=== PATIENT | female | born 1945 | race Caucasian/White ===

== ENCOUNTER 2016-08-29 13:45 | Emergency (ER) | payer MEDICARE, OTHER ==
[~2016-08-29] VITALS: Ht 157.5 cm; Wt 71.0 kg
[~2016-08-29 13:45] MED LIST: ACET-2158 PO; DIL1I IV; FAMO20VI9 IV; HYDR-3504 PO; Hydralazine Hcl IV; LORA2VIA3 IV; MOR10I IV; NS3ML IV; ONDA-43 PO; UDMOM PO; ZOLP5TAB PO; [UNRECOGNIZED DRUG - CODE] IV
[2016-08-29 13:50] VITALS: Ht 157.5 cm; Wt 71.0 kg
[2016-08-29] MEDS ORDERED: ACETAMINOPHEN 325 MG TAB PO ONE (15:00)
--- NOTE | 2016-08-29 15:43 | ERD ---
ER Documentation Chief Complaint Date/Time DATE: 08/29/16 TIME: 15:38 Chief Complaint right wrist pain, left knee pain HPI Patient is a 70-year-old female who presents to the ED with right wrist pain and left knee pain after sustaining a fall where she tripped over her cat and landed on her right wrist and left knee. Patient has a history of left leg amputation. Patient denies hitting her head or passing out or losing consciousness. Patient states that she was aware of everything that happened. She states that she has pain in her right wrist. No pain in her elbow joint. No headache or dizziness. No syncopal episode. No chest pain or cough or shortness of breath. No abdominal pain, nausea, vomiting or diarrhea. ROS All systems reviewed and are negative except as per history of present illness. Medications Home Meds Active Scripts Tramadol HCl (Tramadol HCl) 50 Mg Tablet, 50 MG PO Q6, #10 TAB Prov:MILAGRO ZHOU PA-C 08/29/16 Zolpidem Tartrate (Ambien Catalino) 5 Mg Tab, 5 MG PO QHS Y for INSOMNIA, #30 Prov:ZULAY PALOMINO MD 09/14/14 Sodium Chloride* (NS* 3 ml (Saline Flush)) 3 Ml Soln, 3 ML IV .PER PROTOCOL, # 30 Prov:ZULAY PALOMINO MD 09/14/14 Ondansetron Hcl* (Zofran*) 4 Mg Tab, 4 MG PO Q6H Y for NAUSEA AND/OR VOMITING for 30 Days, TAB Prov:ZULAY PALOMINO MD 09/14/14 Morphine Sulfate (Morphine) 10 Mg/Ml Soln, 8 MG IV Q4H Y for PAIN LEVEL 7-10 for 30 Days Prov:ZULAY PALOMINO MD 09/14/14 Magnesium Hydroxide* (Mcgill' MOM*) 30 Ml Susp, 30 ML PO DAILY Y for CONSTIPATION, #30 Prov:ZULAY PALOMINO MD 09/14/14 Lorazepam* (Ativan* IV) 2 Mg/Ml Soln, 0.5 MG IV Q6H Y for ANXIETY, #20 VIAL Prov:ZULAY PALOMINO MD 09/14/14 Hydromorphone Hcl* (Dilaudid* Inj) 1 Mg/Ml Soln, 0.5 MG IV Q4H Y for PAIN LEVEL 7-10 for 30 Days Prov:ZULAY PALOMINO MD 09/14/14 Hydrocodone Bit-Acetaminophen (Hydrocodone-APAP) 1 Tab Tab, 2 TAB PO Q4H Y for PAIN for 30 Days Prov:ZULAY PALOMINO MD 09/14/14 [Hydralazine Hcl] 20 MG/ML SOLN No Conflict Check, 10 MG IV Q2H Y for ELEVATED SYSTOLIC BP, VIAL Prov:ZULAY PALOMINO MD 09/14/14 Heparin Sodium,Porcine (Heparin Sodium) 1,000 Unit/Ml Soln, 0 UNIT IV PRN Y for PENDING LAB VALUE for 30 Days, VIAL Prov:ZULAY PALOMINO MD 09/14/14 Famotidine* (Pepcid*) 10 Mg/Ml Soln, 20 MG IV DAILY, #30 VIAL Prov:ZULAY PALOMINO MD 09/14/14 Acetaminophen (TYLENOL 325 MG TAB) 325 Mg Tab, 650 MG PO Q6H Y for PAIN LEVEL 1- 3 OR FEVER for 30 Days, TAB Prov:ZULAY PALOMINO MD 09/14/14 Allergies Allergies: Coded Allergies: No Known Allergy (Unverified , 09/06/14) PMhx/Soc History of Surgery: Yes (1978 - LEFT SALPHINGOOOPHORECTOMY) Anesthesia Reaction: No Hx Neurological Disorder: No Hx Respiratory Disorders: No Hx Cardiac Disorders: Yes (mi?) Hx Psychiatric Problems: No Hx Miscellaneous Medical Probl: Yes (HTN, left BKA) Hx Alcohol Use: No Hx Substance Use: No Hx Tobacco Use: Yes Smoking Status: Current some day smoker FmHx Family History: No coronary disease, No diabetes, No other Physical Exam Vitals Vital Signs Date Time Temp Pulse Resp B/P Pulse Ox O2 Delivery O2 Flow Rate FiO2 08/29/16 13:50 98.1 78 18 125/80 99 Physical Exam GENERAL: Well-developed, well-nourished female. Appears in no acute distress. Patient has a left prosthetic leg and is in a wheelchair. HEAD: Normocephalic, atraumatic. EYES: Pupils are equally reactive bilaterally. EOMs grossly intact. No conjunctival erythema. ENT: Moist mucous membranes. No uvula deviation. No kissing tonsils. No exudates. NECK: Supple. No lymphadenopathy or thyromegaly. No meningismus. negative kernig. negative brudinski. LUNG: Clear to auscultation bilaterally. No rhonchi, wheezing, rales or coarse breath sounds. HEART: Regular rate and rhythm. No murmurs, rubs or gallops. Extremities: Equal pulses bilaterally. No peripheral clubbing, cyanosis or edema. No unilateral leg swelling. Tenderness to the right wrist at the carpal bones and distal radius and ulna. Strong radial pulse. Capillary refill within normal limits. Slight deformity in the wrist. No open wounds or lacerations. No ecchymosis. No erythema. Warm. NEUROLOGIC: Alert and oriented. Moving all four extremities. 5/5 strength in all extremities. Normal speech. Steady gait. SKIN: Normal color. Warm and dry. No rashes or lesions. Capillary refill < 2 seconds Results 24 hrs Current Medications Medications (Trade) Dose Ordered Sig/Chris Route PRN Reason Start Time Stop Time Status Last Admin Dose Admin Acetaminophen (Tylenol Tab) 650 mg ONCE ONCE PO 08/29/16 15:00 08/29/16 15:01 DC 08/29/16 15:19 Tramadol HCl (Ultram) 50 mg ONCE ONCE PO 08/29/16 17:30 08/29/16 17:31 DC 08/29/16 18:13 Procedures/MDM ER COURSE: I kept the patient and/or family informed of laboratory and diagnostic imaging results throughout the emergency room course. IMAGING STUDIES [place] [address] Radiology Main Line: [phone] DIAGNOSTIC IMAGING REPORT Patient: ELLY SLOAN : 1945 Age: 70 Sex: F [id number] DOS: 08/29/16 1454 Ordering MD: MILAGRO ZHOU PA-C Location: [facility] Room/Bed: PROCEDURE: XR Right Forearm. CLINICAL INDICATION: Trauma due to a fall. Right forearm pain. TECHNIQUE: AP and lateral views of the right forearm were obtained. COMPARISON: No prior studies are available for comparison. FINDINGS: There is an acute comminuted fracture of the distal radius involving the metaphysis and extending to the distal articular surface. There is marked angulation apex-anterior and impaction of the fracture fragments. There is no other acute fracture and there is no dislocation. There is an old nonunited ulnar styloid fracture. There is soft tissue swelling overlying the fracture. The articular surfaces are otherwise intact. There is no lytic or blastic lesion. There is no radiopaque foreign body. IMPRESSION: 1. Acute comminuted fracture of the distal radius involving the distal metaphysis and articular surface. Marked angulation apex-anterior. Impaction of the fracture fragments. 2. Old nonunited ulnar styloid fracture. 3. Soft tissue swelling overlying the fracture. 4. Otherwise unremarkable images of the right forearm. RPTAT: QQ .Cem Ellis MD, Date Time Electronically viewed and signed by .Cem Ellis MD, on 08/29/2016 16:31 .R/ CC: MILAGRO ZHOU PA-C [place] [address] Radiology Main Line: [phone] DIAGNOSTIC IMAGING REPORT Patient: ELLY SLOAN : 1945 Age: 70 Sex: F MR #: [id number] DOS: 08/29/16 1454 Ordering MD: MILAGRO ZHOU PA-C Location: [facility] Room/Bed: PROCEDURE: Left knee radiographs. CLINICAL INDICATION: Trauma due to a fall Left knee pain. TECHNIQUE: Three views. Weight bearing. Frontal, lateral, and oblique. COMPARISON: No prior studies are available for comparison. FINDINGS: There is no fracture or dislocation. There is a joint effusion. Articular surfaces are intact. There is no lytic or blastic lesion. Surgical clips are present in the soft tissues posteriorly. IMPRESSION: 1. Surgical clips in the posterior soft tissues. 2. Joint effusion. 3. No fracture. RPTAT: QQ .Cem Ellis MD, Date Time Electronically viewed and signed by .Cem Ellis MD, MD on 08/29/2016 16:32 .R/ CC: MILAGRO ZHOU PA-C MEDICAL DECISION MAKING: This is a 70-year-old female who presents with right wrist pain and left knee pain after sustaining a fall. Vital signs were reviewed. Patient is afebrile. Patient is not hypoxic. Patient is not toxic or ill-appearing. X-rays of by radiologist showsAcute comminuted fracture of the distal radius involving the distal metaphysis and articular surface. Marked angulation apex-anterior. Impaction of the fracture fragments. I consulted with my supervising physician who reviewed her imaging studies and agrees with my medical decision making and discharge plans. Patient will be placed in a volar splint. Patient was neurovascularly intact post placement. Patient's skin was warm, strong radial pulse and good capillary refill, less than 2 seconds. I did explain to patient possible side effects of his injuries such as permanent nerve damage and weakness. I did expand to patient that she needs to follow-up with an beef specialist in 1-2 days. Patient stated that she had a specialist at [facility] and will be following up with the doctor tomorrow. I did explain to patient that if she does not have access to the specialist to come earlier to the ER for further evaluation. Social service consult was called to discuss with patient possibility of options as patient has difficulty with activities of daily living. Patient had difficulty ambulating here in the ED. Patient was given a crutch for her left arm however she did have difficulty ambulating. Patient does use a walker at home. Patient will be transferred to the next provider, Kailee Garcia PA-C. Plan was discussed with patient. patient will be calling her neighbors to see if they can help her at home. Social service was called again. Patient is stable at transfer to the next provider. Plan is for patient to be sent home if she does have help at home however patient has a positive of being admitted here in the hospital if she does not help at home for her activities of daily living Departure Diagnosis: Primary Impression: Fracture, radius Encounter type: initial encounter Fracture type: closed Laterality: right Condition: Stable MILAGRO ZHOU PA-C Aug 29, 2016 15:43 MILAGRO ZHOU PA-C Aug 29, 2016 15:43
--- NOTE | 2016-08-29 16:31 | RADRPT ---
PROCEDURE: XR Right Wrist. CLINICAL INDICATION: Trauma due to a fall. Right wrist pain. TECHNIQUE: Four views. Frontal, lateral, oblique, and scaphoid view. COMPARISON: No prior studies are available for comparison. FINDINGS: There is an acute comminuted fracture of the distal radius involving the metaphysis and extending to the distal articular surface. There is marked angulation apex-anterior and impaction of the fractu re fragments. There is no other acute fracture and there is no dislocation. There is an old nonunit ed ulnar styloid fracture. There is soft tissue swelling overlying the fracture. The articular surfaces are otherwise intact. There is no lytic or blastic lesion. There is no radiopaque foreign body. IMPRESSION: 1. Acute comminuted fracture of the distal radius involving the distal metaphysis and articular yodit face. Marked angulation apex-anterior. Impaction of the fracture fragments. 2. Old nonunited ulnar styloid fracture. 3. Soft tissue swelling overlying the fracture. 4. Otherwise unremarkable images of the right wrist. RPTAT: QQ .Cem Ellis MD, Date Time Electronically viewed and signed by .Cem Ellis MD, on 08/29/2016 16:31 .R/
--- NOTE | 2016-08-29 16:32 | RADRPT ---
PROCEDURE: XR Right Forearm. CLINICAL INDICATION: Trauma due to a fall. Right forearm pain. TECHNIQUE: AP and lateral views of the right forearm were obtained. COMPARISON: No prior studies are available for comparison. FINDINGS: There is an acute comminuted fracture of the distal radius involving the metaphysis and extending to the distal articular surface. There is marked angulation apex-anterior and impaction of the fractu re fragments. There is no other acute fracture and there is no dislocation. There is an old nonunit ed ulnar styloid fracture. There is soft tissue swelling overlying the fracture. The articular surfaces are otherwise intact. There is no lytic or blastic lesion. There is no radiopaque foreign body. IMPRESSION: 1. Acute comminuted fracture of the distal radius involving the distal metaphysis and articular yodit face. Marked angulation apex-anterior. Impaction of the fracture fragments. 2. Old nonunited ulnar styloid fracture. 3. Soft tissue swelling overlying the fracture. 4. Otherwise unremarkable images of the right forearm. RPTAT: QQ .Cem Ellis MD, MD Date Time Electronically viewed and signed by .Cem Ellis MD, on 08/29/2016 16:31 .R/
--- NOTE | 2016-08-29 16:32 | RADRPT ---
PROCEDURE: Left knee radiographs. CLINICAL INDICATION: Trauma due to a fall Left knee pain. TECHNIQUE: Three views. Weight bearing. Frontal, lateral, and oblique. COMPARISON: No prior studies are available for comparison. FINDINGS: There is no fracture or dislocation. There is a joint effusion. Articular surfaces are intact. There is no lytic or blastic lesion. Surgical clips are present in the soft tissues posteriorly. IMPRESSION: 1. Surgical clips in the posterior soft tissues. 2. Joint effusion. 3. No fracture. RPTAT: QQ .Cem Ellis MD, MD Date Time Electronically viewed and signed by .Cem Ellis MD, MD on 08/29/2016 16:32 .R/
--- NOTE | 2016-08-29 16:33 | RADRPT ---
PROCEDURE: XR Hand. CLINICAL INDICATION: Trauma due to a fall. Right hand pain. TECHNIQUE: Three views. Frontal, lateral, and oblique images of the right hand were obtained. COMPARISON: No prior studies are available for comparison. FINDINGS: There is an acute comminuted fracture of the distal radius involving the metaphysis and extending to the distal articular surface. There is marked angulation apex-anterior and impaction of the fractu re fragments. There is no other acute fracture and there is no dislocation. There is an old nonunit ed ulnar styloid fracture. There is soft tissue swelling overlying the fracture. The articular surfaces are otherwise intact. There is no lytic or blastic lesion. There is no radiopaque foreign body. IMPRESSION: 1. Acute comminuted fracture of the distal radius involving the distal metaphysis and articular yodit face. Marked angulation apex-anterior. Impaction of the fracture fragments. 2. Old nonunited ulnar styloid fracture. 3. Soft tissue swelling overlying the fracture. 4. Otherwise unremarkable images of the right and. RPTAT: QQ .Cem Ellis MD, Date Time Electronically viewed and signed by .Cem Ellis MD, on 08/29/2016 16:33 .R/
[2016-08-29] MEDS ORDERED: TRAM50TA2 PO (17:18)
[2016-08-29] MEDS ORDERED: traMADol 50 MG TAB PO ONE (17:30)
[2016-08-29 19:39] VITALS: BP 120/78; PULSE 72; RESP 18; TEMP 98.1
== END 2016-08-29 19:42 | disposition home or self-care (01) ==
LOC: FTE 13:45
DX: S52.501A Unspecified fracture of the lower end of right radius, initial encounter for closed fracture (principal); I10 Essential (primary) hypertension; F17.210 Nicotine dependence, cigarettes, uncomplicated; W01.198A Fall on same level from slipping, tripping and stumbling with subsequent striking against other object, initial encounter; Y92.9 Unspecified place or not applicable
CPT/HCPCS: 73562